=== PATIENT | female | born 1960 | race Caucasian/White ===

== ENCOUNTER → 2016-11-15 | Outpatient (CLI) | payer MEDICAID ==
--- NOTE | 2016-11-15 21:19 | WWHP ---
DATE OF SERVICE: 11/15/2016. CHIEF COMPLAINT: The patient is here for her routine gynecologic exam and mammogram. HPI: This is a 56-year-old G3, P3 with an LMP of 2003. She is without gynecologic complaints and denies any postmenopausal bleeding. PAST MEDICAL HISTORY: Osteopenia and mildly elevated cholesterol. MEDICATIONS: Calcium with vitamin D. ALLERGIES: No known drug allergies. PAST SURGICAL HISTORY: Right hand surgery x2, colonoscopy 2011. 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 SOCIAL HISTORY: She denies tobacco and drug use and has 1 to 2 alcoholic drinks per week. 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 She has 2 grandsons. FAMILY HISTORY: Father had heart disease. REVIEW OF SYSTEMS: Weight has been stable. RESPIRATORY: Cardiac, she has noticed a slight shortness of breath with stair climbing, but does not seem short of breath with her regular exercise activities. She does exercise on a regular basis. GASTROINTESTINAL: unremarkable. PHYSICAL EXAM: Blood pressure 104/68. Height 5 feet 4 inches. Weight 134 pounds. Temperature 98.4, pulse 84. This a well-developed, well-nourished white female who is alert and oriented x3 in no acute distress. HEENT is within normal limits. NECK: Supple without mass or thyromegaly. CHEST AND LUNGS: Clear to auscultation. HEART: Regular rate and rhythm. Breasts are without mass or discharge. Axillary exam is negative for adenopathy. BACK: Negative for CVA tenderness. ABDOMEN: Soft, nontender, without palpable masses. PELVIC EXAM: Normal external genitalia with mild atrophy. Cervix and vagina reveal mild atrophy without lesions. No evidence of prolapse. The uterus is midposition, nongravid size and nontender. There are no palpable adnexal masses or tenderness. Rectovaginal exam is negative for mass or tenderness and is negative for occult blood. EXTREMITIES: Nontender. IMPRESSION: 1. A 56-year-old menopausal female with normal gynecologic exam. 2. History of slight dyspnea on exertion on occasion, but not with all exercise activities. There are no significant physical findings at this time. 3. History of osteopenia. PLAN: 1. Pap smear was performed. 2. Self-breast examination was discussed. 3. Mammogram will be done today. 4. Bone density testing will be done. 5. I recommend she follow up with her primary care physician or a coat ironer hand for further evaluation because of the recent dyspnea on exertion. 6. Osteoporosis prevention was discussed. 7. She will return in one year.
--- NOTE | 2016-11-16 09:30 | BD ---
EXAMINATION TYPE: MG DEXA axial skeleton. DATE OF EXAM: 11/15/2016 3:53 PM COMPARISON: Prior DEXA bone scan October 03, 2012. CLINICAL HISTORY: Postmenopausal female Height: 5 FT 3 1/2 Weight: 133 FRAX RISK QUESTIONS: Alcohol (3 or more units per day): YES Family History (Parent hip fracture): NO Glucocorticoids (More than 3mos): NO (Ex: prednisone, prednisolone, methylprednisolone, dexamethasone, and hydrocortisone). History of Fracture in Adulthood: NO Secondary Osteoporosis: 1. Type 1 Diabetes: NO 2. Hyperthyroidism: NO 3. Menopause before 45: NO 4. Malnutrition: NO 5. Chronic liver disease: NO Rheumatoid Arthritis: NO Current Tobacco Use: NO RISK FACTORS HISTORY OF: Drink Alcohol: YES Active: YES Postmenopausal woman: AGE 45 MEDICATIONS: Additional Medications: CALCIUM Additional History: EXAM MEASUREMENTS: Bone mineral densitometry was performed using the [employer] System. Bone mineral density as measured about the Lumbar spine is: ----- L1-L4(G/cm2): 1.033 T Score Values are as follows: ----- L2: -1.4 ----- L3: -0.6 ----- L4: -1.1 ----- L1-L4: -1.2 Bone mineral density has: Decreased -1.3 % since study of: 2011 Bone mineral density about the R hip (g/cm2): 0.821 Bone mineral density about the L hip (g/cm2): 0.754 T Score values are as follows: -----R Neck: -1.6 -----L Neck: -2.0 -----R Intertrochanter: -0.7 -----L Intertrochanter: -1.2 Bone mineral density has: Decreased -1.4% since study of: 2011 IMPRESSION: Osteopenia (T Score between -2.5 and -1 as noted by T score values in the low back and both hips. Bon e density slightly decreased or diminished from prior. There is slightly increased risk of fracture a nd the patient may be considered for treatment. Re-Screen 1-2 years. NOTE: T-SCORE=SD OF THE YOUNG ADULT MEAN.
--- NOTE | 2016-11-17 08:18 | MM ---
Reason for exam: screening (asymptomatic). Last mammogram was performed 1 year and 1 month ago. History: Patient is postmenopausal. Physical Findings: A clinical breast exam by your physician is recommended on an annual basis and results should be correlated with mammographic findings. MG 3D Screening Mammo W/Cad Bilateral CC and MLO view(s) were taken. Prior study comparison: October 28, 2015, bilateral MG 3d screening mammo w/ cad. February 23, 2015, right breast MG work up mamm w CAD RT. October 14, 2014, bilateral MG screening mammo w CAD. The breast tissue is extremely dense which could obscure a lesion on mammography. No significant changes when compared with prior studies. ASSESSMENT: Negative, BI-RAD 1 RECOMMENDATION: 1. Routine screening mammogram of both breasts in 1 year. 2. Patient should continue montly self breast exams. 3. A negative mammogram should not preclude additional follow up of suspicious palpable abnormalities. LYNN
== END | disposition home or self-care (01) ==
LOC: WWCWWP 14:40
PROVIDERS: ATTEND Obstetrics & Gynecology
DX: Z12.31 Encounter for screening mammogram for malignant neoplasm of breast (principal); M85.88 Other specified disorders of bone density and structure, other site
CPT/HCPCS: 77080; 77063; G0202

== ENCOUNTER → 2016-12-28 | Outpatient (CLI) | payer MEDICAID ==
[2016-12-28 09:07] LABS: ALT 33 U/L (9-52); AST 25 U/L (14-36); Alkaline Phosphatase 71 U/L (38-126); Anion Gap 10 mmol/L; Blood Urea Nitrogen 16 mg/dL (7-17); Calcium 9.3 mg/dL (8.4-10.2); Carbon Dioxide 28 mmol/L (22-30); Chloride 105 mmol/L (98-107); Cholesterol 206 mg/dL (<200); Glucose 90 mg/dL (74-99); HDL Cholesterol 84 mg/dL (40-60); Non-African American GFR(MDRD) >60 (>60 ml/min/1.73 sqM); Potassium 4.3 mmol/L (3.5-5.1); Sodium 143 mmol/L (137-145); Total Bilirubin 0.7 mg/dL (0.2-1.3); Total Protein 7.3 g/dL (6.3-8.2); Triglycerides 60 mg/dL (<150)
[2016-12-28 09:18] LABS: Basophils % (A) 1 %; CH 29.3; CHCM 33.4; Eosinophils # (A) 0.2 k/uL (0-0.7); Eosinophils % (A) 3 %; HCT 39.3 % (34.0-46.0); HDW 2.74; HGB 12.6 gm/dL (11.4-16.0); Luc # (Auto) 0.06; Luc % (Auto) 1; Lymphocytes # (A) 0.9 k/uL (1.0-4.8); Lymphocytes % (A) 18 %; MCH 28.3 pg (25.0-35.0); MCHC 32.1 g/dL (31.0-37.0); Mean Platelet Volume 6.9; Monocytes # (A) 0.2 k/uL (0-1.0); Monocytes % (A) 4 %; Neutrophils # (A) 3.5 k/uL (1.3-7.7); Neutrophils % (A) 73 %; RBC 4.47 m/uL (3.80-5.40); RDW 12.9 % (11.5-15.5); WBC 4.8 k/uL (3.8-10.6); WBC (Perox) 5.21
== END | disposition home or self-care (01) ==
LOC: LABWHC1 08:27
PROVIDERS: ATTEND Family Medicine
DX: Z00.00 Encounter for general adult medical examination without abnormal findings (principal); R11.0 Nausea; R00.2 Palpitations
CPT/HCPCS: 36415; 80053; 80061; 83690; 84443; 85025

== ENCOUNTER → 2018-01-02 | Outpatient (CLI) | payer MEDICAID ==
--- NOTE | 2018-01-02 23:42 | WWHP ---
[facility] - HISTORY AND PHYSICAL DATE OF DICTATION: 01/02/2018 CHIEF COMPLAINT: The patient is here for her routine gynecologic exam and mammogram. HPI: This is a 57-year-old G 3, P 3, with an LMP of 2003. The patient is without gynecologic complaints. PAST MEDICAL HISTORY: Osteopenia and mildly elevated cholesterol. MEDICATIONS: Calcium with vitamin D daily. ALLERGIES: No known drug allergies. PAST SURGICAL HISTORY: Right hand surgery x2, colonoscopy 2012. 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 SOCIAL HISTORY: She denies tobacco and drug use and has 1 to 2 alcohol containing drinks per month. 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 She is expecting her third grandchild. FAMILY HISTORY: Father had an SD. REVIEW OF SYSTEMS: She has lost 3 pounds over the last year. She denies respiratory, cardiac or GI problems. Skin: She recently developed a pruritic rash on her back. She has used hydrocortisone cream with slight relief. PHYSICAL EXAM: Blood pressure 108/73, height 5 feet 4 inches, weight 131 pounds, BMI 22. Temperature 98.8, pulse 65. This is a well-developed, well-nourished, white female, who is alert and oriented x3, in no acute distress. HEENT is within normal limits. NECK: Supple without mass or thyromegaly. Chest: LUNGS: Clear to auscultation. HEART: Regular rate and rhythm. Breasts are without mass or discharge. Axillary exam is negative for adenopathy. Back negative for CVA tenderness. There is a slight maculopapular rash in the mid portion of her back. This is in an area of approximately 10 x 10 cm. ABDOMEN: Soft, nontender, without palpable masses. Pelvic exam: External genitalia reveals [id number] atrophy without lesions. Cervix and vagina reveals mild-to- moderate atrophy without lesions. There is no evidence of prolapse. The uterus is mid position, nongravid size, nontender. There are no palpable adnexal masses or tenderness. Rectovaginal exam is negative for mass or tenderness and is negative for occult blood. Extremities nontender. IMPRESSION: 1. A 57-year-old menopausal female with normal gynecologic exam. 2. Nonspecific back dermatitis which is pruritic. PLAN: 1. Pap smear was deferred since she had a normal one last year. 2. Self breast examination was discussed. 3. Screening mammogram will be done today. 4. Osteoporosis prevention was discussed. 5. Kenalog 0.1% cream b.i.d. p.r.n. for the back dermatitis. Consider evaluation by television repairman if this is not improving. 6. She will return in 1 year. MMODL / IJN: [id number] / LYNN
--- NOTE | 2018-01-04 07:19 | MM ---
Reason for exam: screening (asymptomatic). Last mammogram was performed 1 year and 2 months ago. History: Patient is postmenopausal. Physical Findings: A clinical breast exam by your physician is recommended on an annual basis and results should be correlated with mammographic findings. MG 3D Screening Mammo W/Cad Bilateral CC and MLO view(s) were taken. Prior study comparison: November 15, 2016, bilateral MG 3d screening mammo w/cad. October 28, 2015, bilateral MG 3d screening mammo w/cad. The breast tissue is extremely dense which could obscure a lesion on mammography. No significant changes when compared with prior studies. ASSESSMENT: Benign, BI-RAD 2 RECOMMENDATION: Routine screening mammogram of both breasts in 1 year.
== END | disposition home or self-care (01) ==
LOC: WWCWWP 14:36
PROVIDERS: ATTEND Obstetrics & Gynecology
DX: Z12.31 Encounter for screening mammogram for malignant neoplasm of breast (principal)
CPT/HCPCS: 77063; 77067

== ENCOUNTER → 2018-01-18 | Outpatient (CLI) | payer MEDICAID ==
[2018-01-18 08:24] LABS: ALT 30 U/L (9-52); AST 28 U/L (14-36); Albumin 4.4 g/dL (3.5-5.0); Alkaline Phosphatase 76 U/L (38-126); Anion Gap 9 mmol/L; Blood Urea Nitrogen 19 mg/dL (7-17); Calcium 9.4 mg/dL (8.4-10.2); Carbon Dioxide 28 mmol/L (22-30); Chloride 104 mmol/L (98-107); Cholesterol 238 mg/dL (<200); Glucose 96 mg/dL (74-99); HDL Cholesterol 87 mg/dL (40-60); LDL Cholesterol,Calculated 135 mg/dL (0-99); Potassium 4.3 mmol/L (3.5-5.1); Sodium 141 mmol/L (137-145); Total Bilirubin 0.5 mg/dL (0.2-1.3); Total Protein 7.1 g/dL (6.3-8.2); Triglycerides 82 mg/dL (<150)
[2018-01-18 08:42] LABS: Basophils % (A) 1 %; Eosinophils # (A) 0.1 k/uL (0-0.7); Eosinophils % (A) 4 %; HCT 40.8 % (34.0-46.0); HGB 13.6 gm/dL (11.4-16.0); Lymphocytes % (A) 26 %; MCH 28.2 pg (25.0-35.0); MCHC 33.2 g/dL (31.0-37.0); MCV 84.8 fL (80.0-100.0); Mean Platelet Volume 7.4; Monocytes # (A) 0.3 k/uL (0-1.0); Monocytes % (A) 9 %; Neutrophils # (A) 2.1 k/uL (1.3-7.7); Neutrophils % (A) 58 %; Platelet Count 193 k/uL (150-450); RBC 4.81 m/uL (3.80-5.40); RDW 13.1 % (11.5-15.5); WBC 3.6 k/uL (3.8-10.6)
== END | disposition home or self-care (01) ==
LOC: LABWHC1 07:32
PROVIDERS: ATTEND Family Medicine
DX: E78.5 Hyperlipidemia, unspecified (principal); R00.2 Palpitations
CPT/HCPCS: 36415; 80053; 80061; 83735; 85025

== ENCOUNTER → 2019-04-30 | Outpatient (CLI) | payer MEDICAID ==
[2019-04-30 11:02] VITALS: BP 146/76; PULSE 82; RESP 16; TEMP 97.5; BMI 22.4
--- NOTE | 2019-04-30 11:24 | P.HPOB ---
History of Present Illness H&P Date: 04/30/19 Chief Complaint: The patient is here for her routine gynecologic exam. This is a 59-year-old G3 PIII with an LMP of 2003. The patient is without gynecologic complaints and denies any postmenopausal bleeding. Review of Systems The patient's weight has been stable over the last year. She denies respiratory, cardiac, or G.I. problems. Past Medical History Past Medical History: No Reported History, Hyperlipidemia Additional Past Medical History / Comment(s): Osteopenia. 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 History of Any Multi-Drug Resistant Organisms: None Reported Additional Past Surgical History / Comment(s): trigger finger release in right hand. Colonoscopy 2011(next 10yrs). Past Psychological History: No Psychological Hx Reported Smoking Status: Never smoker Past Alcohol Use History: Occasional (One or 2 per month.) Past Drug Use History: None Reported Additional History: She has been since 1984. 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 - Past Family History Father Family Medical History: Myocardial Infarction ([place]) Mother Family Medical History: No Reported History Medications and Allergies Allergies Allergy/AdvReac Type Severity Reaction Status Date / Time No Known Allergies Allergy Verified 04/30/19 11:02 Exam Vital Signs Temp Pulse Resp BP Pulse Ox 04/30/19 11:00 97.5 F L 82 16 146/76 97 Intake and Output 04/29/19 04/30/19 04/30/19 22:59 06:59 14:59 Other: Weight 59.421 kg Height 5'4", weight 131 pounds, BMI 22.5. This is a well-developed well-nourished white female who is alert and oriented times 3 in no acute distress. HEENT: Within normal limits. NECK: Supple without mass or thyromegaly. CHEST AND LUNGS: Clear to auscultation. HEART: Regular rate and rhythm. BREASTS: Are without mass or discharge. AXILLARY EXAM: Negative for adenopathy. BACK: Negative for CVA tenderness. ABDOMEN: Soft, nontender, without palpable masses. PELVIC EXAM: Normal external genitalia with mild atrophy. Cervix and vagina appear normal with mild atrophy. There is no unusual discharge. There is no evidence of prolapse. The uterus is midposition, nongravid size and nontender. There are no palpable adnexal masses or tenderness. RECTAL EXAM: rectovaginal exam is negative for mass or tenderness and is negative for occult blood. EXTREMITIES: Nontender. IMPRESSION: 1. 59-year-old menopausal female with normal gynecologic exam. 2. History of osteopenia. PLAN: 1. Pap smear was performed. 2. Self breast awareness was discussed with the patient. 3. Screening mammogram is due. This is scheduled for 05/09/2019. The order slip was given to the patient. 4. Osteoporosis prevention was discussed. I have stressed the importance of adequate calcium, vitamin D and regular exercise. Recommended amounts of calcium and vitamin D were also discussed. She would like to redo the bone density test in one year. 5. She was advised to return in one year for her annual well woman exam.
== END | disposition home or self-care (01) ==
LOC: WWCWWP 10:39
PROVIDERS: ATTEND Obstetrics & Gynecology
DX: Z53.9 Procedure and treatment not carried out, unspecified reason (principal)

== ENCOUNTER → 2019-05-09 | Outpatient (CLI) | payer MEDICAID ==
--- NOTE | 2019-05-13 08:28 | MM ---
Reason for exam: screening (asymptomatic). Last mammogram was performed 1 year and 4 months ago. History: Patient is postmenopausal. Physical Findings: A clinical breast exam by your physician is recommended on an annual basis and results should be correlated with mammographic findings. MG 3D Screening Mammo W/Cad Bilateral CC and MLO view(s) were taken. XCCL view(s) were taken of the left breast. Prior study comparison: January 02, 2018, bilateral MG 3d screening mammo w/cad. November 15, 2016, bilateral MG 3d screening mammo w/cad. The breast tissue is extremely dense which could obscure a lesion on mammography. Focal asymmetry inferior left MLO. This finding is changed when compared with previous exams. ASSESSMENT: Incomplete: need additional imaging evaluation, BI-RAD 0 RECOMMENDATION: Special view mammogram of the left breast. If lesion persists on supplemental views, image directed ultrasound is recommended. [facility] will attempt to contact patient to return for supplemental views and ultrasound if indicated.
--- NOTE | 2019-05-14 16:39 | P.PN ---
Progress Note - Text Progress Note Date: 05/14/19 The patient has called with questions regarding her screening mammogram done 05/09/2019. We discussed the finding of a focal asymmetry in the inferior left breast with extremely dense breast tissue bilaterally. The asymmetry is a new finding and they have requested special views of the left breast. This was explained to the patient. She understands that this will be a diagnostic mammogram and she will call for an appointment for this workup.
== END | disposition home or self-care (01) ==
LOC: RADMAMWWP 12:52
PROVIDERS: ATTEND Obstetrics & Gynecology
DX: Z12.31 Encounter for screening mammogram for malignant neoplasm of breast (principal)
CPT/HCPCS: 77063; 77067

== ENCOUNTER → 2019-06-14 | Outpatient (CLI) | payer MEDICAID ==
[2019-06-14 08:36] LABS: Basophils % (A) 1 %; Eosinophils # (A) 0.1 k/uL (0-0.7); Eosinophils % (A) 3 %; HCT 39.8 % (34.0-46.0); HGB 13.3 gm/dL (11.4-16.0); Lymphocytes % (A) 31 %; MCHC 33.4 g/dL (31.0-37.0); MCV 86.8 fL (80.0-100.0); Mean Platelet Volume 6.9; Monocytes # (A) 0.2 k/uL (0-1.0); Monocytes % (A) 7 %; Neutrophils # (A) 1.8 k/uL (1.3-7.7); Neutrophils % (A) 55 %; Platelet Count 202 k/uL (150-450); RBC 4.58 m/uL (3.80-5.40); RDW 13.2 % (11.5-15.5); WBC 3.2 k/uL (3.8-10.6)
[2019-06-14 16:14] LABS: African American GFR (CKD) 92.2 (60.0-200.0); Albumin 4.3 g/dL (3.80-4.90); Albumin/Globulin Ratio 2.15 (1.60-3.17); Anion Gap 6.7 mmol/L (4.00-12.00); Calcium 9.1 mg/dL (8.7-10.3); Carbon Dioxide 28.3 mmol/L (21.6-31.8); Potassium 4.2 mmol/L (3.5-5.5); Total Bilirubin 0.8 mg/dL (0.3-1.2); Total Protein 6.3 g/dL (6.2-8.2)
== END | disposition home or self-care (01) ==
LOC: LABWHC1 08:02
PROVIDERS: ATTEND Family Medicine
DX: Z00.00 Encounter for general adult medical examination without abnormal findings (principal); E78.5 Hyperlipidemia, unspecified; R00.2 Palpitations
CPT/HCPCS: 36415; 80053; 80061; 83735; 84443; 85025

== ENCOUNTER → 2019-06-18 | Outpatient (CLI) | payer MEDICAID ==
--- NOTE | 2019-06-18 15:04 | MM ---
Reason for exam: additional evaluation requested from abnormal screening. Last mammogram was performed 1 month ago. History: Patient is postmenopausal. Physical Findings: Nurse did not find any significant physical abnormalities on exam. MG Work Up Mamm w CAD LT LM and spot compression MLO view(s) were taken of the left breast. Prior study comparison: May 09, 2019, bilateral MG 3d screening mammo w/cad. January 02, 2018, bilateral MG 3d screening mammo w/cad. The breast tissue is extremely dense which could obscure a lesion on mammography. No distinct lesion persists on additional views. These results were verbally communicated with the patient and result sheet given to the patient on 06/18/19. ASSESSMENT: Negative, BI-RAD 1 RECOMMENDATION: Return to routine screening mammogram schedule for both breasts.
== END | disposition home or self-care (01) ==
LOC: RADMAMWWP 14:00
PROVIDERS: ATTEND Obstetrics & Gynecology
DX: R92.8 Other abnormal and inconclusive findings on diagnostic imaging of breast (principal)
CPT/HCPCS: 77065

== ENCOUNTER → 2020-06-26 | Outpatient (CLI) | payer MEDICAID ==
[2020-06-26 11:21] LABS: Basophils % (A) 1 %; Eosinophils # (A) 0.1 k/uL (0-0.7); Eosinophils % (A) 3 %; HCT 40.8 % (34.0-46.0); HGB 13.2 gm/dL (11.4-16.0); Lymphocytes # (A) 1.3 k/uL (1.0-4.8); Lymphocytes % (A) 26 %; MCH 28.9 pg (25.0-35.0); MCHC 32.4 g/dL (31.0-37.0); MCV 89.1 fL (80.0-100.0); Mean Platelet Volume 7.4; Monocytes # (A) 0.2 k/uL (0-1.0); Monocytes % (A) 5 %; Neutrophils # (A) 3.2 k/uL (1.3-7.7); Neutrophils % (A) 64 %; Platelet Count 239 k/uL (150-450); RBC 4.58 m/uL (3.80-5.40); RDW 12.8 % (11.5-15.5)
[2020-06-26 16:35] LABS: African American GFR (CKD) 79.4 (60.0-200.0); Albumin 4.5 g/dL (3.80-4.90); Albumin/Globulin Ratio 2.14 (1.60-3.17); Anion Gap 7.6 mmol/L (4.00-12.00); BUN/Creat Ratio 15.56 Ratio (12.00-20.00); Calcium 9.4 mg/dL (8.7-10.3); Carbon Dioxide 27.4 mmol/L (21.6-31.8); Chol/HDL Ratio 2.61; Globulin 2.1 g/dL (1.6-3.3); LDL Cholesterol,Calculated 123.4 mg/dL (0.0-131.0); Non-African American GFR(CKD) 68.5 (60.0-200.0); Potassium 4.4 mmol/L (3.5-5.5); Total Bilirubin 0.8 mg/dL (0.2-1.2); Total Protein 6.6 g/dL (6.2-8.2); VLDL Calculation 10.6 mg/dL (5.00-40.00)
[2020-06-26 16:43] LABS: T4, Free (Free Thyroxine) 1.1 ng/dL (0.80-1.80)
== END | disposition home or self-care (01) ==
LOC: LABWHC1 09:14
PROVIDERS: ATTEND Family Medicine
DX: Z00.00 Encounter for general adult medical examination without abnormal findings (principal); E78.5 Hyperlipidemia, unspecified; R11.0 Nausea
CPT/HCPCS: 36415; 80053; 80061; 84439; 84443; 84481; 85025

== ENCOUNTER → 2020-09-30 | Outpatient (CLI) | payer MEDICAID ==
[2020-09-30 11:32] VITALS: BP 116/73; PULSE 74; RESP 18; TEMP 98.2
--- NOTE | 2020-09-30 12:01 | P.HPOB ---
History of Present Illness H&P Date: 09/30/20 Chief Complaint: The patient is here for her routine gynecologic exam. This is a 60-year-old with an LMP of 2003. The patient is without gynecologic complaints. Review of Systems The patient's weight has been stable over the last year. She denies respiratory, cardiac, or G.I. problems. Past Medical History Past Medical History: No Reported History, Hyperlipidemia Additional Past Medical History / Comment(s): Osteopenia. 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 History of Any Multi-Drug Resistant Organisms: None Reported Additional Past Surgical History / Comment(s): trigger finger release in right hand. Colonoscopy 2011(next 10yrs). Past Psychological History: No Psychological Hx Reported Smoking Status: Never smoker Past Alcohol Use History: Occasional (1 or 2 per month) Past Drug Use History: None Reported Additional History: She has been since 1984. 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 - Past Family History Father Family Medical History: Myocardial Infarction ([place]) Mother Family Medical History: No Reported History Medications and Allergies Home Medications Medication Instructions Recorded Confirmed Type Calcium Carbonate [Calcium] 600 mg PO DAILY 09/30/20 09/30/20 History Fluconazole [Diflucan] 150 mg PO ONCE 09/30/20 09/30/20 History Allergies Allergy/AdvReac Type Severity Reaction Status Date / Time No Known Allergies Allergy Verified 09/30/20 11:25 Exam Vital Signs Temp Pulse Resp BP Pulse Ox 09/30/20 11:26 98.2 F 74 18 116/73 99 Intake and Output 09/29/20 09/30/20 09/30/20 22:59 06:59 14:59 Other: Weight 58.513 kg Height 5 feet 4 inches, weight 129 pounds, BMI 22.1. This is a well-developed well-nourished white female who is alert and oriented times 3 in no acute distress. HEENT: Within normal limits. NECK: Supple without mass or thyromegaly. CHEST AND LUNGS: Clear to auscultation. HEART: Regular rate and rhythm. BREASTS: Are without mass or discharge. AXILLARY EXAM: Negative for adenopathy. BACK: Negative for CVA tenderness. ABDOMEN: Soft, nontender, without palpable masses. PELVIC EXAM: Normal external genitalia with mild atrophy. Cervix and vagina appear normal with mild atrophy. There is no unusual discharge. There is no evidence of prolapse. The uterus is midposition, nongravid size and nontender. There are no palpable adnexal masses or tenderness. RECTAL EXAM: Rectovaginal exam is negative for mass or tenderness and is negative for occult blood. EXTREMITIES: Nontender. IMPRESSION: 1. 60-year-old menopausal female with normal gynecologic exam. 2. History of osteopenia. PLAN: 1. Pap smear was deferred since she had a normal one on 04/30/2019. 2. Self breast awareness was discussed with the patient. 3. Screening mammogram is due and the order slip was given to the patient for this. 4. Osteoporosis prevention was discussed. I have stressed the importance of adequate calcium, vitamin D and regular exercise. Recommended amounts of calcium and vitamin D were also discussed. She is due for bone density testing and the order slip was given to the patient for this. 5. She was advised to return in one year for her annual well woman exam.
== END | disposition home or self-care (01) ==
LOC: WWCWWP 11:19
PROVIDERS: ATTEND Obstetrics & Gynecology
DX: Z53.9 Procedure and treatment not carried out, unspecified reason (principal)

== ENCOUNTER → 2021-02-03 | Outpatient (CLI) | payer MEDICAID ==
--- NOTE | 2021-02-05 11:43 | MM ---
Reason for exam: screening (asymptomatic). Last mammogram was performed 1 year and 8 months ago. History: Patient is postmenopausal. Physical Findings: A clinical breast exam by your physician is recommended on an annual basis and results should be correlated with mammographic findings. MG 3D Screening Mammo W/Cad Bilateral CC and MLO view(s) were taken. Prior study comparison: May 09, 2019, bilateral MG 3d screening mammo w/cad. January 02, 2018, bilateral MG 3d screening mammo w/cad. November 15, 2016, bilateral MG 3d screening mammo w/cad. The breast tissue is extremely dense which could obscure a lesion on mammography. Inferior asymmetric density left MLO view is more defined. ASSESSMENT: Incomplete: need additional imaging evaluation, BI-RAD 0 RECOMMENDATION: Special view mammogram and ultrasound of the left breast. (3-8 o'clock) [facility] will attempt to contact patient to return for supplemental views and ultrasound.
--- NOTE | 2021-02-09 08:59 | P.PN ---
Progress Note - Text Progress Note Date: 02/09/21 The patient called regarding her recent screening mammogram on 02/03/2021 which was felt to be incomplete and additional views of the left breast were recommended. I have reviewed the mammogram images from this year and from [address] Medrano, the radiologist. There is a discrete area in the left breast which is considered an asymmetric density on the MLO view. This could be this similar area from her 2019 mammogram that needed additional viewing. He feels that it is different than the 2019 mammogram in appearance. I have discussed this with the patient and she states she will make an appointment for the additional views.
== END | disposition home or self-care (01) ==
LOC: RADMAMWWP 14:06
PROVIDERS: ATTEND Obstetrics & Gynecology
DX: Z12.31 Encounter for screening mammogram for malignant neoplasm of breast (principal); Z78.0 Asymptomatic menopausal state
CPT/HCPCS: 77063; 77067

== ENCOUNTER → 2021-04-01 | Outpatient (CLI) | payer MEDICAID ==
--- NOTE | 2021-04-01 13:21 | MM ---
Reason for exam: additional evaluation requested from abnormal screening. Last mammogram was performed 2 months ago. History: Patient is postmenopausal. Physical Findings: Nurse did not find any significant physical abnormalities on exam. MG 3D Work Up W/Cad LT Spot compression CC, spot compression MLO, and LM view(s) were taken of the left breast. Prior study comparison: February 03, 2021, bilateral MG 3d screening mammo w/cad. June 18, 2019, left breast MG work up mamm w CAD LT. The breast tissue is extremely dense which could obscure a lesion on mammography. Left 3.5mm nodule 7 o'clock, 4cm from nipple, may be benign asymmetry/overlap. Left ultrasound recommended. These results were verbally communicated with the patient and result sheet given to the patient on 04/01/21. ASSESSMENT: Incomplete: need additional imaging evaluation, BI-RAD 0 RECOMMENDATION: Ultrasound of the left breast.
--- NOTE | 2021-04-01 13:26 | USB ---
Reason for exam: additional evaluation requested from abnormal screening. History: Patient is postmenopausal. US Breast Workup Limited LT Left limited breast ultrasound including focal area of concern, retroareolar and axilla demonstrates no cystic or solid lesion seen. No sonographic finding. These results were verbally communicated with the patient and result sheet given to the patient on 04/01/21. ASSESSMENT: Probably benign, BI-RAD 3 RECOMMENDATION: Follow-up diagnostic mammogram of the left breast in 6 months.
== END | disposition home or self-care (01) ==
LOC: RADMAMWWP 07:51
PROVIDERS: ATTEND Obstetrics & Gynecology
DX: N63.20 Unspecified lump in the left breast, unspecified quadrant (principal); Z78.0 Asymptomatic menopausal state
CPT/HCPCS: 77061; 77065

== ENCOUNTER → 2021-07-09 | Outpatient (CLI) | payer MEDICAID ==
[2021-07-09 11:41] LABS: Basophils # (A) 0.05 X 10*3/uL (0.00-0.10); Basophils % (A) 1.3 %; Eosinophils # (A) 0.17 X 10*3/uL (0.04-0.35); Eosinophils % (A) 4.5 %; HCT 39.5 % (37.2-46.3); Lymphocytes # (A) 1.26 X 10*3/uL (0.90-5.00); Lymphocytes % (A) 33.4 %; MCH 29.5 pg (27.0-32.0); MCHC 32.9 g/dL (32.0-37.0); MCV 89.8 fL (80.0-97.0); Mean Platelet Volume 10.8 fL (9.5-12.2); Monocytes # (A) 0.32 X 10*3/uL (0.20-1.00); Monocytes % (A) 8.5 %; Neutrophils # (A) 1.96 X 10*3/uL (1.80-7.70); Platelet Count 202 X 10*3/uL (140-440); RDW 12.3 % (11.5-14.5); WBC 3.77 X 10*3/uL (4.50-10.00)
[2021-07-09 22:34] LABS: African American GFR (CKD) 90.9 (60.0-200.0); Albumin 4.8 g/dL (3.80-4.90); Albumin/Globulin Ratio 2.29 (1.60-3.17); BUN/Creat Ratio 22.5 Ratio (12.00-20.00); Calcium 9.1 mg/dL (8.7-10.3); Chol/HDL Ratio 2.61; Globulin 2.1 g/dL (1.6-3.3); LDL Cholesterol,Calculated 121.4 mg/dL (0.0-131.0); Non-African American GFR(CKD) 78.5 (60.0-200.0); Potassium 4.2 mmol/L (3.5-5.5); Total Bilirubin 0.7 mg/dL (0.3-1.2); Total Protein 6.9 g/dL (6.2-8.2); VLDL Calculation 13.6 mg/dL (5.00-40.00)
== END | disposition home or self-care (01) ==
LOC: LABWHC1 07:32
PROVIDERS: ATTEND Family Medicine
DX: Z00.00 Encounter for general adult medical examination without abnormal findings (principal); M85.80 Other specified disorders of bone density and structure, unspecified site; R92.8 Other abnormal and inconclusive findings on diagnostic imaging of breast; B35.1 Tinea unguium
CPT/HCPCS: 36415; 80053; 80061; 85025

== ENCOUNTER → 2021-10-13 | Outpatient (CLI) | payer MEDICAID ==
[2021-10-13 09:15] VITALS: BP 109/61; PULSE 70; RESP 18; TEMP 98.3
--- NOTE | 2021-10-13 10:48 | P.HPOB ---
History of Present Illness H&P Date: 10/13/21 Chief Complaint: The patient is here for her routine gynecologic exam. This is a 61-year-old with an LMP of 2003. The patient is without gynecologic complaints and denies any postmenopausal bleeding. Her screening mammogram was done last spring and this did require a left breast workup. A six-month left diagnostic mammogram was recommended and this is scheduled for 10/19/2021. Review of Systems Her weight has been stable. She denies respiratory or GI problems. Cardiac: Occasional palpitations which is not new. She has had workup testing for this in the past. Past Medical History Past Medical History: Hyperlipidemia Additional Past Medical History / Comment(s): Osteopenia. 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 History of Any Multi-Drug Resistant Organisms: None Reported Additional Past Surgical History / Comment(s): trigger finger release in right hand. Colonoscopy 2011(next 10yrs). Past Psychological History: No Psychological Hx Reported Smoking Status: Never smoker Past Alcohol Use History: Occasional (2 per month) Past Drug Use History: None Reported Additional History: She has been since 1984. 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. - Past Family History Father Family Medical History: Myocardial Infarction (HI) Mother Family Medical History: No Reported History Medications and Allergies Home Medications Medication Instructions Recorded Confirmed Type Fluconazole [Diflucan] 150 mg PO ONCE 09/30/20 10/13/21 History Calcium Carbonate/Vitamin D3 1 each PO DAILY 10/13/21 10/13/21 History [Calcium 250-D Tablet] Allergies Allergy/AdvReac Type Severity Reaction Status Date / Time No Known Allergies Allergy Verified 10/13/21 08:54 Exam Vital Signs Temp Pulse Resp BP Pulse Ox 10/13/21 08:56 98.3 F 70 18 109/61 99 Intake and Output 10/12/21 10/13/21 10/13/21 22:59 06:59 14:59 Other: Weight 58.06 kg Height 5 feet 4 inches, weight 128 pounds, BMI 22.0. This is a well-developed well-nourished white female who is alert and oriented times 3 in no acute distress. HEENT: Within normal limits. NECK: Supple without mass or thyromegaly. CHEST AND LUNGS: Clear to auscultation. HEART: Regular rate and rhythm. BREASTS: Are without mass or discharge. AXILLARY EXAM: Negative for adenopathy. BACK: Negative for CVA tenderness. ABDOMEN: Soft, nontender, without palpable masses. PELVIC EXAM: Normal external genitalia with mild atrophy. Cervix and vagina appear normal with mild atrophy. There is no unusual discharge. There is no evidence of prolapse. The uterus is midposition, nongravid size and nontender. There are no palpable adnexal masses or tenderness. RECTAL EXAM: Rectovaginal exam is negative for mass or tenderness and is ne gative for occult blood. EXTREMITIES: Nontender. IMPRESSION: 1. 61-year-old menopausal female with normal gynecologic exam. 2. Previous abnormal mammogram requiring a six-month left breast diagnostic mammogram. 3. History of osteopenia PLAN: 1. Pap smear cotest was performed. If this is negative we will discontinue Pap smears. 2. Self breast awareness was discussed with the patient. We have also discussed symptoms associated with inflammatory breast cancer. 3. Diagnostic left breast mammogram is scheduled for 10/19/2021. This is her six-month follow-up. Bilateral mammogram will be due in approximately 5-6 months. 4. Osteoporosis prevention was discussed. I have stressed the importance of adequate calcium, vitamin D and regular exercise. Recommended amounts of calcium and vitamin D were also discussed. I have recommended bone density testing since it has been about 4 years since her last one. The order slip was given to the patient for this. 5. She has completed her Covid vaccination series and did receive a booster. 6. She was advised to return in one year for her annual well woman exam.
== END ==
LOC: WWCWWP 08:47
PROVIDERS: ATTEND Obstetrics & Gynecology
DX: Z01.419 Encounter for gynecological examination (general) (routine) without abnormal findings (principal); E78.5 Hyperlipidemia, unspecified; Z87.39 Personal history of other diseases of the musculoskeletal system and connective tissue

== ENCOUNTER → 2021-10-20 | Outpatient (CLI) | payer MEDICAID ==
--- NOTE | 2021-10-25 09:45 | MM ---
Reason for exam: follow-up at short interval from prior study. Last mammogram was performed 7 months ago. History: Patient is postmenopausal. Physical Findings: Nurse did not find any significant physical abnormalities on exam. MG 3D Diag Mammo W/Cad LT CC and MLO view(s) were taken of the left breast. Prior study comparison: April 01, 2021, left breast MG 3d work up w/cad LT. February 03, 2021, bilateral MG 3d screening mammo w/cad. The breast tissue is extremely dense which could obscure a lesion on mammography. The inferior asymmetric density is less defined. Follow up in 1 year recommended. No significant new findings when compared with previous films. These results were verbally communicated with the patient and result sheet given to the patient on 10/20/21. ASSESSMENT: Benign, BI-RAD 2 RECOMMENDATION: Follow-up diagnostic mammogram of both breasts in 1 year.
== END | disposition home or self-care (01) ==
LOC: RADMAMWWP 14:23
PROVIDERS: ATTEND Obstetrics & Gynecology
DX: N64.89 Other specified disorders of breast (principal); Z78.0 Asymptomatic menopausal state
CPT/HCPCS: 77061; 77065

== ENCOUNTER → 2022-08-31 | Outpatient (CLI) | payer BC ==
[2022-08-31 14:30] LABS: Basophils # (A) 0.04 X 10*3/uL (0.00-0.10); Basophils % (A) 1.1 %; Eosinophils # (A) 0.08 X 10*3/uL (0.04-0.35); Eosinophils % (A) 2.3 %; HCT 38.8 % (37.2-46.3); HGB 13.1 g/dL (12.0-15.0); Immature Grans, Automated 0.3 %; Lymphocytes # (A) 1.07 X 10*3/uL (0.90-5.00); Lymphocytes % (A) 30.7 %; MCH 28.9 pg (27.0-32.0); MCHC 33.8 g/dL (32.0-37.0); MCV 85.5 fL (80.0-97.0); Mean Platelet Volume 10.3 fL (9.5-12.2); Monocytes # (A) 0.33 X 10*3/uL (0.20-1.00); Monocytes % (A) 9.5 %; NRBC Per 100 WBC 0 /100 WBCS (0.0-0.0); Neutrophils # (A) 1.95 X 10*3/uL (1.80-7.70); Neutrophils % (A) 56.1 %; Platelet Count 243 X 10*3/uL (140-440); RBC 4.54 X 10*6/uL (4.10-5.20); RDW 12.8 % (11.5-14.5); WBC 3.48 X 10*3/uL (4.50-10.00)
[2022-08-31 14:50] LABS: ALT 14 U/L (8-44); AST 14 U/L (13-35); African American GFR (CKD) 99.7 (60.0-200.0); Albumin 4.5 g/dL (3.8-4.9); Albumin/Globulin Ratio 2.15 (1.60-3.17); Alkaline Phosphatase 75 U/L (41-126); BUN/Creat Ratio 17.77 Ratio (12.00-20.00); Blood Urea Nitrogen 13.1 mg/dL (9.0-27.0); Calcium 9.3 mg/dL (8.7-10.3); Carbon Dioxide 28.1 mmol/L (20.0-27.5); Chloride 103 mmol/L (96-109); Chol/HDL Ratio 2.71 Ratio; Globulin 2.1 g/dL (1.6-3.3); Glucose 90 mg/dL (70-110); LDL Cholesterol,Calculated 139.2 mg/dL (0.0-131.0); Potassium 4.2 mmol/L (3.5-5.5); Sodium 140 mmol/L (135-145); Total Protein 6.6 g/dL (6.2-8.2); VLDL Calculation 13.42 mg/dL (5.00-40.00)
== END | disposition home or self-care (01) ==
LOC: LABWHC1 08:35
PROVIDERS: ATTEND Family Medicine
DX: Z00.00 Encounter for general adult medical examination without abnormal findings (principal); E78.5 Hyperlipidemia, unspecified
CPT/HCPCS: 36415; 80053; 80061; 85025

== ENCOUNTER → 2022-11-17 | Outpatient (CLI) | payer BC ==
--- NOTE | 2022-11-17 10:47 | MM ---
Reason for Exam: Additional evaluation requested from prior study. Last mammogram was performed 1 year(s) and 9 month(s) ago. Patient History: Menarche at age 11. First Full-Term at age 26. Postmenopausal. Patient has history of breast feeding. Risk Values: Yenni 5 year model risk: 1.8%. NCI Lifetime model risk: 7.2%. Prior Study Comparison: 11/15/2016 Bilateral Screening Mammogram, [facility]. 01/02/2018 Bilateral Screening Mammogram, [facility]. 05/09/2019 Bilateral Screening Mammogram, [facility]. 06/18/2019 Left Diagnostic Mammogram, [facility]. 02/03/2021 Bilateral Screening Mammogram, [facility]. 04/01/2021 Left Diagnostic Mammogram, [facility]. 10/20/2021 Left Diagnostic Mammogram, [facility]. Tissue Density: The breast tissue is extremely dense which could obscure a lesion on mammography. Findings: Analyzed By CAD. There is symmetrical and stable. No significant interval change is evident. There is some distortion in the upper portion of the right breast which may be summation density, likely present on the 2020 examination. Under compression this area disperses normally. No significant interval change is evident. No suspicious groups of microcalcifications, spiculated or lobular masses, architectural distortion or other secondary signs of malignancy are mammographically apparent. Overall Assessment: Benign, BI-RAD 2 Management: Screening Mammogram of both breasts in 1 year. A negative mammogram report should not preclude additional follow up of suspicious palpable abnormalities. Patient should continue monthly self breast exam. A clinical breast exam by your physician is recommended on an annual basis and results should be correlated with mammographic findings. Electronically signed and approved by: Luc Paige D.O. Radiologis
== END | disposition home or self-care (01) ==
LOC: RADMAMWWP 09:45
PROVIDERS: ATTEND Obstetrics & Gynecology
DX: R92.8 Other abnormal and inconclusive findings on diagnostic imaging of breast (principal); Z78.0 Asymptomatic menopausal state
CPT/HCPCS: 77062; 77066

== ENCOUNTER → 2023-03-31 | Outpatient (CLI) | payer MEDICARE ==
--- NOTE | 2023-03-31 09:21 | BD ---
EXAMINATION TYPE: Axial Bone Density DATE OF EXAM: 03/31/2023 CLINICAL HISTORY: 63 years old Female. ICD-10 CODE: Z78.0 [place] Comparison: Prior DEXA bone scan 2016 Height: 63.25in Weight: 129lb FRAX RISK QUESTIONS: Secondary Osteoporosis: RISK FACTORS HISTORY OF: Active: yes Postmenopausal woman: yes MEDICATIONS: Additional Medications: vitamin d Additional History: none EXAM MEASUREMENTS: Bone mineral densitometry was performed using the [employer] System. Bone mineral density as measured about the Lumbar spine is: ----- L1-L4(G/cm2): 0.934 T Score Values are as follows: ----- L1: -2.9 ----- L2: -2.3 ----- L3: -1.4 ----- L4: -1.9 ----- L1-L4: -2.0 Z Score Values are as follows: ----- L1: -1.1 ----- L2: -0.5 ----- L3: 0.4 ----- L4: -0.1 ----- L1-L4: -0.2 Bone mineral density has: Decreased -9.6% since study of: 11-15-16 Bone mineral density about the R hip (g/cm2): 0.844 Bone mineral density about the L hip (g/cm2): 0.794 T Score values are as follows: -----R Neck: -2.3 -----L Neck: -2.2 -----R Total: -1.3 -----L Total: -1.7 Z Score values are as follows: -----R Neck: -0.7 -----L Neck: -0.6 -----R Total: 0.0 -----L Total: -0.4 Bone mineral density has: Decreased -4.5% since study of: 11-15-16 FRAX%s: The graph provided illustrates a 11.3% chance for a major osteoporotic fx and a 2.1% chance f or the hips probability for fx in 10 years time. IMPRESSION: Osteopenia (T Score between -2.5 and -1) remains present. There remains slightly increased risk of fracture and the patient may be considered for treatment. Re-Screen 2-5 years. NOTE: T-SCORE=SD OF THE YOUNG ADULT MEAN.
== END | disposition home or self-care (01) ==
LOC: RADBDWWP 08:52
PROVIDERS: ATTEND Obstetrics & Gynecology
DX: M81.0 Age-related osteoporosis without current pathological fracture (principal); Z78.0 Asymptomatic menopausal state
CPT/HCPCS: 77080

== ENCOUNTER → 2023-10-09 | Outpatient (CLI) | payer MEDICARE ==
--- NOTE | 2023-10-13 18:21 | P.HOLTER ---
48 HOUR HOLTER MONITOR NOTE: INDICATION: Palpitations START DATE: 10/09/2023 END DATE: 10/11/2023 MAX HEART RATE: 132 BPM MIN HEART RATE: 56 BPM, at 2 AM 10/11/2023 AVERAGE HEART RATE: 79 BPM Total bradycardia burden 1.17%, total tachycardia 1 and 6.77%. 0.03% supraventricular ectopic burden. Less than 0.01% PVC burden. One run of 5 beat nonsustained V. tach at 2 AM CONCLUSION: 1. Patient's baseline rhythm was [normal sinus rhythm]. 2. There were no signficant atrial fibrillation, atrial flutter, or sustained ventricular tachycardia episodes. 3. There were no significant pauses greater than 2 seconds. 4. Patient triggered event corresponded to sinus rhythm. Nighttime bradycardia and nonsustained V. tach could be a sign of sleep apnea. Please correlate clinically. Thank you for letting [facility] cardiology team to get involved in this patient's care. Please feel free to contact our office in case of any specific questions. Dominic Bowling MD Cardiovascular disease
--- NOTE | 2023-10-16 09:37 | EST ---
EXERCISE STRESS The patient was monitored for 48 hours. The baseline rhythm is a sinus mechanism with normal conduction. The average rate 79 beats per minute, minimum 56, maximum 132 beats per minute. Ventricular ectopic activity was present in the form of rare single PVCs. There was one 5 complex ventricular tachycardia. Supraventricular ectopic activity was present in the form of rare single PACs. Symptoms of shortness of breath, coughing, heart fluttering did not correlate with any dysrhythmia. CONCLUSIONS: 1. Sinus mechanism baseline rhythm. 2. Rare ventricular ectopic activity with 1 episode of 5 complex ventricular tachycardia that was asymptomatic. 3. Rare supraventricular ectopic activity. 4. Symptoms did not correlate with any dysrhythmia. MMODL / IJN: [id number] / [facility]
== END | disposition home or self-care (01) ==
LOC: RADECHMAIN 07:49
PROVIDERS: ATTEND Family Medicine
DX: I49.3 Ventricular premature depolarization (principal); R00.2 Palpitations
CPT/HCPCS: 93225; 93226

== ENCOUNTER → 2024-02-01 | Outpatient (CLI) | payer MEDICARE ==
--- NOTE | 2024-02-01 14:33 | MM ---
Reason for Exam: Screening (asymptomatic). Last mammogram was performed 1 year(s) and 3 month(s) ago. Patient History: Menarche at age 11. First Full-Term at age 26. Postmenopausal. Patient has history of breast feeding. Maternal aunt had breast cancer, age 70. Risk Values: Yenni 5 year model risk: 1.8%. NCI Lifetime model risk: 6.9%. Prior Study Comparison: 04/01/2021 Left Diagnostic Mammogram, [facility]. 10/20/2021 Left Diagnostic Mammogram, [facility]. 11/17/2022 Bilateral MG 3D diag mammo w/cad [facility], [facility]. Tissue Density: The breasts are extremely dense, which lowers the sensitivity of mammography. Findings: Analyzed By CAD. Right breast: There is no suspicious group of microcalcifications or new suspicious mass. Left breast: There is no suspicious group of microcalcifications or new suspicious mass. Overall Assessment: Negative, BI-RAD 1 Management: Screening Mammogram of both breasts in [address] [facility] will attempt to contact patient to return for supplemental views and ultrasound if indicated. Patient should continue monthly self-breast exams. A clinical breast exam by your physician is recommended on an annual basis. This exam should not preclude additional follow-up of suspicious palpable abnormalities. Note on Yenni scores and lifetime risk: 1. A Yenni score greater than 3% is considered moderate risk. If this is the case, consider specialist referral to assess eligibility for a risk reducing agent. 2. If overall lifetime risk for the development of breast cancer is 20% or higher, the patient may qualify for future screening with alternating mammogram and breast MRI. Electronically signed and approved by: Mickey Sepulveda DO
== END | disposition home or self-care (01) ==
LOC: RADMAMWWP 13:13
PROVIDERS: ATTEND Family Medicine
DX: Z12.31 Encounter for screening mammogram for malignant neoplasm of breast (principal); Z78.0 Asymptomatic menopausal state; Z80.3 Family history of malignant neoplasm of breast
CPT/HCPCS: 77063; 77067

== ENCOUNTER → 2024-09-04 | Outpatient (CLI) | payer MEDICARE ==
[2024-09-04 10:21] LABS: Basophils # (A) 0.06 X 10*3/uL (0.00-0.10); Basophils % (A) 1.8 %; Eosinophils # (A) 0.09 X 10*3/uL (0.04-0.35); Eosinophils % (A) 2.8 %; HCT 40.1 % (37.2-46.3); HGB 13.2 g/dL (12.0-15.0); Lymphocytes # (A) 0.88 X 10*3/uL (0.90-5.00); MCH 28.4 pg (27.0-32.0); MCHC 32.9 g/dL (32.0-37.0); MCV 86.4 FL (80.0-97.0); Monocytes # (A) 0.28 X 10*3/uL (0.20-1.00); Monocytes % (A) 8.6 %; NRBC Per 100 WBC 0 X 10*3/uL (0.00-0.01); Neutrophils # (A) 1.92 X 10*3/uL (1.80-7.70); Neutrophils % (A) 58.9 %; Platelet Count 266 X 10*3/uL (140-440); RBC 4.64 X 10*6/uL (4.10-5.20); RDW 12.7 % (11.5-14.5); WBC 3.26 X 10*3/uL (4.50-10.00)
[2024-09-04 10:48] LABS: ALT 12 U/L (8-44); AST 16 U/L (13-35); Albumin 4.4 g/dL (3.8-4.9); Alkaline Phosphatase 73 U/L (41-126); BUN/Creat Ratio 18.25 Ratio (12.00-20.00); Blood Urea Nitrogen 14.6 mg/dL (9.0-27.0); Calcium 9.4 mg/dL (8.7-10.3); Carbon Dioxide 27.1 mmol/L (21.6-31.8); Chloride 104 mmol/L (96-109); Chol/HDL Ratio 2.72 Ratio; Globulin 2.1 g/dL (1.6-3.3); Glucose 92 mg/dL (70-110); Potassium 4.4 mmol/L (3.5-5.5); Sodium 141 mmol/L (135-145); Total Bilirubin 0.5 mg/dL (0.3-1.2); Total Protein 6.5 g/dL (6.2-8.2); VLDL Calculation 14.58 mg/dL (5.00-40.00)
== END | disposition home or self-care (01) ==
LOC: LABWHC1 07:07
PROVIDERS: ATTEND Family Medicine
DX: Z00.00 Encounter for general adult medical examination without abnormal findings (principal); E78.5 Hyperlipidemia, unspecified
CPT/HCPCS: 36415; 80053; 80061; 82306; 83036; 84443; 85025

== ENCOUNTER → 2025-01-14 | Outpatient (CLI) | payer MEDICARE ==
[2025-01-14 13:55] VITALS: BP 107/71; PULSE 78; RESP 16; TEMP 98
--- NOTE | 2025-01-14 19:23 | P.SLEEP ---
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 The patient started by having symptoms of palpitation. The patient was given a 48-hour Holter monitor and this was completed on 10/09/2023 and the patient was found to have bradycardia and the bradycardia burden was 1.17% but his slowest heart rate being 56 bpm. The patient also had episodes of tachycardia with a tachycardia burden of 6.77% and the highest heart rate being at 132. She did have occasional supraventricular ectopies and a 1 run of 5 beat nonsustained VT at 2 AM. No significant cardiac pauses greater than 2 seconds. No significant atrial fibrillation, flutter or SVT. Based on that, sleep study was recommended. Noted the patient does not have any history of cardiac disease. She has had a previous cardiac stress symptoms with on many years back and she has not had any subsequent follow-up. No based on echocardiogram. The patient denies having any chest pain. No angina. No palpitation. No exertional dyspnea. In terms of her sleep, she has a soft snore. She goes to bed at around 10 PM wakes up 7 AM in the morning. She takes a half an hour nap twice a week in the early afternoon. Denies waking up choking or gasping for air. No restlessness in lower extremities. No sleepwalking or sleep talking. No nighttime chest pain or palpitations or heartburn. She is going to bed at around 10 PM and waking up 7 AM in the morning and she is averaging 7 hours of sleep. Takes a few minutes to fall asleep and she has no issues with sleep induction. No alcoholism. No substance abuse. No head trauma. Her current upper scores of 12. No recent weight gain. No sleep paralysis. No hallucinations. No cataplexy. No history of any motor vehicle accidents because of feeling drowsy or sleepy. Weight has remained stable over the past 10 years. Review of Systems Constitutional: Reports as per HPI Eyes: denies as per HPI, denies blurred vision, denies bulging eye, denies decreased vision, denies diplopia, denies discharge, denies dry eye, denies irritation, denies itching, denies pain, denies photophobia, denies loss of peripheral vision, denies loss of vision, denies tunnel vision/blind spots Ears: deny: decreased hearing, ear discharge, earache, tinnitus Ears, nose, mouth and throat: Reports as per HPI Breasts: absent: as per HPI, change in shape, gynecomastia, masses, nipple discharge, pain, skin changes, swelling Cardiovascular: Reports as per HPI, Reports palpitations Respiratory: Reports as per HPI, Reports snoring Gastrointestinal: Reports as per HPI Genitourinary: Reports as per HPI Menstruation: Reports as per HPI Musculoskeletal: Reports as per HPI Integumentary: Reports as per HPI Neurological: Reports as per HPI Psychiatric: Reports as per HPI Endocrine: Reports as per HPI Hematologic/Lymphatic: Reports as per HPI Allergic/Immunologic: Reports as per HPI Past Medical History Additional Past Medical History / Comment(s): Osteopenia. 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 History of Any Multi-Drug Resistant Organisms: None Reported Past Surgical History: Orthopedic Surgery Additional Past Surgical History / Comment(s): trigger finger release in right hand X 2. Colonoscopy 2021(next after 10yr). Past Anesthesia/Blood Transfusion Reactions: No Reported Reaction Past Psychological History: No Psychological Hx Reported Smoking Status: Never smoker Past Alcohol Use History: Occasional Past Drug Use History: None Reported - Past Family History Father Family Medical History: Hyperlipidemia, Hypertension, Myocardial Infarction (MD) Additional Family Medical History / Comment(s): 5 cardiac stents, Mother Family Medical History: AFIB, Hyperlipidemia Additional Family Medical History / Comment(s): Maternal aunt had breast cancer and another maternal aunt had colon cancer. (Pt daughter and sister w/depression) Medications and Allergies Home Medications Medication Instructions Recorded Confirmed Type Cholecalciferol (Vitamin D3) 50 mcg PO DAILY 03/26/24 01/14/25 History [Vitamin D3 (50 Mcg = 2000 Iu)] Allergies Allergy/AdvReac Type Severity Reaction Status Date / Time No Known Allergies Allergy Verified 03/26/24 12:48 Physical Exam Vitals: Vital Signs Temp Pulse Resp BP Pulse Ox 01/14/25 13:53 98.0 F 78 16 107/71 97 Intake and Output 01/14/25 01/14/25 01/14/25 06:59 14:59 22:59 Other: Weight 60.781 kg The patient appeared well nourished and normally developed. Vital signs as documented. Head exam is unremarkable. No scleral icterus or corneal arcus noted. Neck is without jugular venous distension, thyromegaly, or carotid bruits. Carotid upstrokes are brisk bilaterally. Mallampati class IV Lungs are clear to auscultation and percussion. Cardiac exam reveals the PMI to be normally sized and situated. Rhythm is regular. First and second heart sounds normal. No murmurs, rubs or gallops. Abdominal exam reveals normal bowel sounds, no masses, no organomegaly and no aortic enlargement. Extremities are nonedematous and both femoral and pedal pulses are normal. Examination of the skin revealed no evidence of significant rashes, suspicious appearing nevi or other concerning lesions. Neurologically, the patient is awake and alert and the patient does not have any focal neurological deficit. Cranial nerves are essentially intact. Assessment and Plan Plan: Palpitations currently inactive and stable Nocturnal bradycardia, probably within normal limits. Minimum heart rate was 56. Occasional limited tachycardia was also noted with a maximum heart rate of 132 based on a Holter monitor that was done on 10/09/2023. In addition, a single run of 5 beats nonsustained VT at 2 AM. Soft snoring, no major hypersomnia or sleepiness. No sleep fragmentation. Body mass index is 23 with a Mallampati class IV Plan Low clinical suspicion for obstructive sleep apnea. Will undergo a baseline polysomnography looking for any cardiac arrhythmias and rule out the possibility of obstructive sleep apnea Sleep hygiene measures are good Maintaining a regular sleep schedule No other major comorbidities Recommend a baseline echocardiogram Will continue to follow Time with Patient: Greater than 30 Sleep Note - Sleep Data ESS Total: 12 - Sleep Note Sleep Note: Temperature: 98.0 F Pulse Rate: 78 Respiratory Rate: 16 Blood Pressure: 107/71 SpO2: 97 Height: 5 ft 4 in Weight: 60.781 kg BMI: Neck Circumference: 13
== END ==
LOC: 3 N SLEEP 13:13
PROVIDERS: ATTEND Internal Medicine Critical Care Medicine
DX: R00.1 Bradycardia, unspecified (principal); Z68.23 Body mass index [BMI] 23.0-23.9, adult
CPT/HCPCS: 99211

== ENCOUNTER → 2025-05-13 | Outpatient (CLI) | payer MEDICARE ==
--- NOTE | 2025-05-14 07:30 | MM ---
Reason for Exam: Screening (asymptomatic). Last mammogram was performed 1 year(s) and 3 month(s) ago. Patient History: Menarche at age 11. First Full-Term at age 26. Postmenopausal. Patient has history of breast feeding. Maternal aunt had breast cancer, age 70. Risk Values: Yenni 5 year model risk: 1.9%. NCI Lifetime model risk: 6.4%. Prior Study Comparison: 10/20/2021 Left Diagnostic Mammogram, [facility]. 11/17/2022 Bilateral MG 3D diag mammo w/cad [facility], [facility]. 02/01/2024 Bilateral MG 3D screening mammo w/cad, [facility]. Tissue Density: The breasts are extremely dense, which lowers the sensitivity of mammography. Findings: Analyzed By CAD. There is no suspicious group of microcalcifications in either breast. New asymmetric nodular density seen best on the left MLO view below the level of 5 cm from the nipple and measuring proximally 6mm. Additional views are recommended which are to include a true lateral view as well as spot compression MLO view and rolled medial CC view. Overall Assessment: Incomplete: need additional imaging evaluation, BI-RAD 0 Management: Diagnostic Mammogram of the left breast. . Patient should continue monthly self-breast exams. A clinical breast exam by your physician is recommended on an annual basis. This exam should not preclude additional follow-up of suspicious palpable abnormalities. Note on Yenni scores and lifetime risk: 1. A Yenni score greater than 3% is considered moderate risk. If this is the case, consider specialist referral to assess eligibility for a risk reducing agent. 2. If overall lifetime risk for the development of breast cancer is 20% or higher, the patient may qualify for future screening with alternating mammogram and breast MRI. [facility], , 05/14/2025 7:27 AM. Electronically signed and approved by: Shoaib Rodriguez M.D. Radiologis
--- NOTE | 2025-05-14 12:11 | BD ---
EXAMINATION TYPE: Axial Bone Density DATE OF EXAM: 05/13/2025 CLINICAL HISTORY: 65 years old Female. ICD-10 CODE: M81.0 POSTMENOPAUSAL , Additional History: Height: 63.5 Weight: 130.3 FRAX RISK QUESTIONS: Alcohol (3 or more units per day): no Family History (Parent hip fracture): no Glucocorticoids (More than 3mos): no (Ex: prednisone, prednisolone, methylprednisolone, dexamethasone, and hydrocortisone). History of Fracture in Adulthood: no Secondary Osteoporosis: 1. Type 1 Diabetes: n o 2. Hyperthyroidism: no 3. Menopause before 45: no 4. Malnutrition: no 5. Chronic liver disease: no Rheumatoid Arthritis: no Current Tobacco Use: no RISK FACTORS HISTORY OF: Hip Fracture (Right/Left): no Spine Fracture: no History of Wrist Fracture: no Surgery to Spine/Hip(right/left)/Wrist (right/left): no MEDICATIONS: Thyroid Medications: no Osteoporosis Medications: no EXAM MEASUREMENTS: Bone mineral densitometry was performed using the [employer] System. Bone mineral density as measured about the Lumbar spine is: ----- L1-L4(G/cm2): 0.942 T Score Values are as follows: ----- L1: -3.1 ----- L2: -2.4 ----- L3: -1.0 ----- L4: -1.9 ----- L1-L4: -2.0 Z Score Values are as follows: ----- L1: -1.25 ----- L2: -0.5 ----- L3: 0.8 ----- L4: -0.1 ----- L1-L4: -0.2 Bone mineral density has: increased 0.9 % since study of: 03/31/2023 Bone mineral density about the R hip (g/cm2): 0.808 Bone mineral density about the L hip (g/cm2): 0.783 T Score values are as follows: -----R Neck: -2.1 -----L Neck: -2.3 -----R Total: -1.6 -----L Total: -1.8 Z Score values are as follows: -----R Neck: -0.4 -----L Neck: -0.7 -----R Total: -0.1 -----L Total: -0.3 Bone mineral density has: decreased -2.8 % since study of: 03/31/2023 FRAX%s: The graph provided illustrates a 12.6% chance for a major osteoporotic fx and a 2.7% chance f or the hips probability for fx in 10 years time. IMPRESSION: Osteopenia (T Score between -2.5 and -1). There is slightly increased risk of fracture and the patient may be considered for treatment. Re-Screen 2-5 years. NOTE: T-SCORE=SD OF THE YOUNG ADULT MEAN. [facility], , 05/14/2025 12:09 PM
== END | disposition home or self-care (01) ==
LOC: RADMAMWWP 14:41
PROVIDERS: ATTEND Family Medicine
DX: Z12.31 Encounter for screening mammogram for malignant neoplasm of breast (principal); M81.0 Age-related osteoporosis without current pathological fracture; R92.343 Mammographic extreme density, bilateral breasts; M85.89 Other specified disorders of bone density and structure, multiple sites; Z78.0 Asymptomatic menopausal state; Z80.3 Family history of malignant neoplasm of breast
CPT/HCPCS: 77063; 77067; 77080